=== PATIENT | female | born 1955 | race Caucasian/White ===

== ENCOUNTER 2017-01-26 11:26 | Emergency (ER) | payer OTHER ==
[2017-01-26 14:05] VITALS: BP 127/64
--- NOTE | 2017-01-26 14:13 | UC ---
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 she states that today the rash has become slightly painful. Also, she has noticed another area of rash on her L chest. Pt would also like to have the skin on both upper eyelids evaluated for "dermatitis"". -she had zostavax 2 yrs ago. never had shingles in past. 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 slight pain today and prefers no pain meds. -she hasnt taken anything for the pain. - started getting flaking in the inner part of upper eyelids a few mo ago. she traditionally wears a significant amt of eye make up as her family has significant dark circles under their eyes that she tries to cover up. it resolves when she stops wearing make up for a few days. tried some gold gorman. - History of Current Complaint Chief Complaint: UCRash Time Seen by Provider: 01/26/17 13:46 Stated Complaint: SKIN COMPLAINT - Allergy/Home Medications Allergies/Adverse Reactions: Allergies Allergy/AdvReac Type Severity Reaction Status Date / Time Erythromycin Allergy Hives Verified 01/26/17 14:05 Penicillin G Allergy Hives Verified 01/26/17 14:05 Review of Systems Constitutional: Negative Skin: Negative Eyes: Other - see above ENT: Negative Respiratory: Negative Cardiovascular: Negative Gastrointestinal: Negative Genitourinary: Negative Motor: Negative Neurovascular: Negative Musculoskeletal: Negative Neurological: Negative Psychological: Negative Is Patient Immunocompromised?: No All Other Systems Reviewed And Are Negative: Yes PMH/Surg Hx/FS Hx/Imm Hx Previously Healthy: Yes - Surgical History Surgical History: None - Family History Known Family History: Positive: Cardiac Disease - Social History Alcohol Use: Occasionally Substance Use Type: None Smoking Status (MU): Never Smoked Tobacco Physical Exam Triage Information Reviewed: Yes Appearance: Well-Appearing, No Pain Distress, Well-Nourished Vital Signs: Initial Vital Signs Temp 98.1 F 01/26/17 13:59 Pulse 97 01/26/17 13:59 Resp 16 01/26/17 13:59 BP 127/64 01/26/17 13:59 Pulse Ox 100 01/26/17 13:59 Eye Exam: Normal Eyes: Positive: Other: - there is mild flaky dermtitis on upper inner eyelids. wearing amke up. ENT Exam: Normal Dental Exam: Normal Neck exam: Normal Neck: Positive: Supple, Nontender, No Lymphadenopathy Respiratory Exam: Normal Respiratory: Positive: Lungs clear, Normal breath sounds, No respiratory distress, No accessory muscle use Cardiovascular Exam: Normal Cardiovascular: Positive: RRR, No Murmur, Pulses Normal Neurological Exam: Normal Psychological Exam: Normal Skin: Positive: rashes - left upper back and left superior medial breast with erythematous patch w/ superimposed vessicles. no d/c. no streaks, no crusting. Course/Dx - Course Course Of Treatment: adv aquaphor for eyelids. avoid eye make up. seek derm care if eye dermatitis not improved. -disc shingles, she is aware. - Differential Diagnoses - Skin Complaint Differential Diagnoses: Abscess, Varicella Zoster - Diagnoses Provider Diagnoses: herpes zoster, eyelid dermatitis Discharge - Discharge Plan Condition: Stable Disposition: HOME Prescriptions: ValACYclovir (*) [Valtrex 500 mg (*)] 500 mg PO TID 7 Days #21 tab Patient Education Materials: Shingles (ED) Referrals: Du Pate DO [Primary Care Provider] - 3 Days Additional Instructions: We talked about keeping the area covered. You can take tylenol or ibuprofen for pain.
== END 2017-01-26 14:40 | disposition home or self-care (01) ==
LOC: UCCORT 11:26
DX: B02.9 Zoster without complications (principal); H01.9 Unspecified inflammation of eyelid; Z88.1 Allergy status to other antibiotic agents; Z88.0 Allergy status to penicillin
CPT/HCPCS: 99212; G0463